=== PATIENT | male | born 1990 | race Two or more races ===

== ENCOUNTER 2022-02-10 02:48 | Emergency (ER) | payer OTHER ==
[~2022-02-10] VITALS: Ht 172.7 cm; Wt 72.6 kg
--- NOTE | 2022-02-10 03:15 | NUR ---
CALLED TO TRIAGE, NOT IN WAITING ROOM
--- NOTE | 2022-02-10 04:22 | NUR ---
PT C/O LT SIDED CP STARTED 10PM YESTERDAY, ADMITS TO USING METH. PT A/OX3. TOLRTING R/A WELL WITH NO SOB. CONNECTED PT TO POX AND MONITOR.
[2022-02-10] MEDS ORDERED: IBUPROFEN 400 MG TABLET PO ONE (04:30)
[2022-02-10] MEDS ORDERED: IBUPROFEN 400 MG TABLET ONE (04:39)
--- NOTE | 2022-02-10 04:43 | NUR ---
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 URINE COLLECTED AND SENT TO LAB
[2022-02-10 04:59] LABS: BASOPHILS # (AUTO) 0.1 K/uL (0.0-0.2); BASOPHILS % (AUTO) 0.7 % (0.0-2.0); EOSINOPHILS % (AUTO) 0.9 % (0.0-6.0); HEMATOCRIT 43 % (39-51); HEMOGLOBIN 14.9 g/dL (13.5-17.5); LYMPHOCYTES # (AUTO) 0.4 K/uL (0.8-4.8); LYMPHOCYTES % (AUTO) 5.6 % (20.0-44.0); MEAN CORPUSCULAR HGB CONC 34 g/dl (31.0-36.0); MEAN CORPUSCULAR VOLUME 87 fL (80-96); MONOCYTES # (AUTO) 0.3 K/uL (0.1-1.30); MONOCYTES % (AUTO) 4.2 % (2.0-12.0); NEUTROPHILS % (AUTO) 88.6 % (43.0-81.0); PLATELET COUNT (AUTO) 248 K/uL (150-450); RED BLOOD CELL COUNT(AUTO) 4.98 MIL/uL (4.5-6.0); WHITE BLOOD COUNT (AUTO) 7.9 K/uL (4.3-11.0)
[2022-02-10 05:20] LABS: ALANINE AMINOTRANSFERASE 36 U/L (12-78); ALBUMIN 3.9 g/dL (3.4-5.0); ALKALINE PHOSPHATASE 87 U/L (46-116); ASPARTATE AMINOTRANSFERASE 25 U/L (15-37); BILIRUBIN,DIRECT 0.1 mg/dL (0.0-0.2); BILIRUBIN,TOTAL 0.7 mg/dL (0.2-1.0); CREATININE 1.2 mg/dL (0.6-1.3); POTASSIUM 3.9 mmol/L (3.5-5.1); SODIUM SERUM 136 mmol/L (136-145); UREA NITROGEN, BLOOD 9 mg/dL (7-18)
[2022-02-10 05:44] LABS: D-DIMER 0.3 mg/L(FEU (0.17-0.50)
[2022-02-10 05:52] LABS: CALCIUM, SERUM 8.9 mg/dL (8.5-10.1); CARBON DIOXIDE 27 mmol/L (21-32); CHLORIDE 100 mmol/L (98-107); GLUCOSE 99 mg/dL (74-106)
--- NOTE | 2022-02-10 07:10 | NUR ---
Patient discharged to home in stable condition. Written and verbal after care instructions given. Patient verbalizes understanding of instruction. PT ambulatory with a steady gait
[2022-02-10 07:11] VITALS: BP 135/75
== END 2022-02-10 07:12 | disposition home or self-care (01) ==
LOC: ER 02:52
DX: R07.89 Other chest pain (principal); F15.10 Other stimulant abuse, uncomplicated
CPT/HCPCS: 36415; 71045-TC; 80048-TC; 80076-TC; 84484-TC; 85025-TC; 85378-TC; 85730-TC; G0480

== ENCOUNTER 2025-05-09 00:57 | Emergency (ER) | payer OTHER | END 2025-05-09 03:45 | disposition left against medical advice (07) | LOC: ER 00:59 | DX: R05.9 Cough, unspecified (principal); J02.9 Acute pharyngitis, unspecified; R09.81 Nasal congestion; Z53.21 Procedure and treatment not carried out due to patient leaving prior to being seen by health care provider ==